=== PATIENT | female | born 1945 | race Caucasian/White ===

== ENCOUNTER 2019-07-27 10:05 | Emergency (ER) | payer SELFPAY ==
[~2019-07-27] VITALS: Ht 147.3 cm; Wt 70.0 kg
[2019-07-27 10:10] VITALS: BP 145/70
[2019-07-27] MEDS ORDERED: METF-960 PO (10:12)
[2019-07-27] MEDS ORDERED: LISI-662 PO (10:12)
== END 2019-07-27 11:42 | disposition home or self-care (01) ==
LOC: EMS 10:07
DX: R05 Cough (principal); E11.9 Type 2 diabetes mellitus without complications; I10 Essential (primary) hypertension; Z79.84 Long term (current) use of oral hypoglycemic drugs; Z79.899 Other long term (current) drug therapy

== ENCOUNTER 2022-08-10 15:12 | Emergency (ER) | payer MEDICARE ==
[~2022-08-10] VITALS: Ht 147.3 cm; Wt 59.1 kg
[~2022-08-10 15:12] MED LIST: LISI-894 PO; METF-1211 PO
[2022-08-10] MEDS ORDERED: OMEP20 PO (15:20)
[2022-08-10] MEDS ORDERED: EMPA10TA3 PO (15:20)
[2022-08-10] MEDS ORDERED: METF-1211 PO (15:20)
[2022-08-10] MEDS ORDERED: DOCU-385 PO (15:20)
[2022-08-10 17:02] LABS: COVID AG,FIA SOURCE NASOPHARYNGEAL
[2022-08-10 17:11] LABS: BASOPHILS % (AUTO) 1.2 % (0.0-2.0); EOSINOPHILS % (AUTO) 0.6 % (1.0-6.0); HEMOGLOBIN 13.3 g/dL (12.0-16.0); LYMPHOCYTES # (AUTO) 1.2 K/uL (1.0-4.8); LYMPHOCYTES % (AUTO) 20.3 % (22.0-44.0); MEAN CORPUSCULAR HGB CONC 33.3 G/dL (31.0-37.0); MEAN CORPUSCULAR VOLUME 93 fL (80-100); MONOCYTES # (AUTO) 0.7 K/uL (0.1-1.0); MONOCYTES % (AUTO) 12.2 % (2.0-9.0); NEUTROPHILS # (AUTO) 3.9 K/uL (1.8-7.7); NEUTROPHILS % (AUTO) 65.7 % (40.0-70.0); RED CELL DISTRIBUTION WIDTH 13.5 % (11.5-14.5)
[2022-08-10 17:20] LABS: ANION GAP 7 mmol/L (8-16); CARBON DIOXIDE 23 mmol/L (22-29); CHLORIDE 100 mmol/L (98-107); CREATININE 0.69 mg/dL (0.60-1.30); GLOMERULAR FILTR. RATE CALC > 60 mL/min (>60); GLUCOSE,RANDOM 134 mg/dL (70-110); POTASSIUM 3.5 mmol/L (3.5-5.1); SODIUM SERUM 130 mmol/L (136-145); UREA NITROGEN, BLOOD 13 mg/dL (7-18)
[2022-08-10 17:30] LABS: ALANINE AMINOTRANSFERASE 17 U/L (12-78); ALBUMIN 3.9 g/dL (3.4-5.0); ALKALINE PHOSPHATASE 74 U/L (46-116); ASPARTATE AMINOTRANSFERASE 17 U/L (15-37); BILIRUBIN,TOTAL 0.3 mg/dL (0.1-1.0); TOTAL PROTEIN, SERUM 7.4 g/dL (6.4-8.2)
[2022-08-10 17:36] LABS: INFLUENZA TYPE A NEGATIVE FOR TYPE A (NEGATIVE); INFLUENZA TYPE B NEGATIVE FOR TYPE B (NEGATIVE)
[2022-08-10 17:38] LABS: B-TYPE NATRIURETIC PEPTIDE 33 pg/mL (0-100); PLATELET COUNT (AUTO) 156 K/uL (150-450)
[2022-08-10] MEDS ORDERED: ACET-66 PO (18:54)
[2022-08-10] MEDS ORDERED: GUAIFDM PO (18:54)
[2022-08-10 19:12] VITALS: BP 119/76
== END 2022-08-10 19:17 | disposition home or self-care (01) ==
LOC: EMS 15:13
DX: J06.9 Acute upper respiratory infection, unspecified (principal); J20.9 Acute bronchitis, unspecified; E11.9 Type 2 diabetes mellitus without complications; K21.9 Gastro-esophageal reflux disease without esophagitis; I10 Essential (primary) hypertension; Z20.822 Contact with and (suspected) exposure to COVID-19
CPT/HCPCS: 80053; 83880; 84484; 85025; 87804; 99283